=== PATIENT | female | born 2000 | race Caucasian/White ===

== ENCOUNTER 2020-09-09 00:46 | Emergency (ER) | payer OTHER ==
[2020-09-09] MEDS ORDERED: Ibuprofen 600 MG Tab PO ONE ×2 (01:01→01:35)
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
== END 2020-09-09 02:17 | disposition home or self-care (01) ==
LOC: MW.ED 00:46
DX: S00.33XA Contusion of nose, initial encounter (principal); X58.XXXA Exposure to other specified factors, initial encounter
CPT/HCPCS: 70160; 99283; A9270; 99282